=== PATIENT | male | born 1970 | race Caucasian/White ===

== ENCOUNTER 2023-08-17 09:23 | Day surgery (SDC) | payer BC ==
[~2023-08-17 09:23] MED LIST: Lactated Ringers 1,000 ML IV SCH; Propofol 200 MG/20 ML SDV ONE
== END 2023-08-17 13:20 | disposition home or self-care (01) ==
LOC: MW.SDS 09:23
PROVIDERS: ATTEND Surgery
DX: D12.3 Benign neoplasm of transverse colon (principal); D12.6 Benign neoplasm of colon, unspecified; K64.4 Residual hemorrhoidal skin tags; J44.9 Chronic obstructive pulmonary disease, unspecified; K21.9 Gastro-esophageal reflux disease without esophagitis; G47.33 Obstructive sleep apnea (adult) (pediatric); E66.01 Morbid (severe) obesity due to excess calories; F17.210 Nicotine dependence, cigarettes, uncomplicated; Z79.899 Other long term (current) drug therapy; Z68.41 Body mass index [BMI] 40.0-44.9, adult
CPT/HCPCS: 45380; 45381; 45385; J7120; 00811; J2704

== ENCOUNTER 2025-02-05 20:45 | Emergency (ER) | payer BC ==
[2025-02-05 21:28] LABS: BASOPHILS ABSOLUTE AUTO 0.07 K/uL (0.00-0.20); BASOPHILS PERCENT AUTO 0.5 % (0.0-1.0); EOSINOPHILS ABSOLUTE AUTO 0.11 K/uL (0.00-0.45); EOSINOPHILS PERCENT AUTO 0.8 % (0.0-6.0); HEMATOCRIT 49.2 % (42.0-52.0); IMMATURE GRAN ABSOLUTE AUTO 0.04 K/uL (0.00-0.05); IMMATURE GRAN PERCENT AUTO 0.3 % (0.0-0.4); LYMPHOCYTES ABSOLUTE AUTO 3.96 K/uL (1.00-4.80); LYMPHOCYTES PERCENT AUTO 30.4 % (24.0-44.0); MEAN CORPUSCULAR HGB CONC 34.6 g/dL (32.0-36.0); MEAN CORPUSCULAR VOLUME 89.8 fL (83.0-99.0); MEAN PLATELET VOLUME 10.1 fL (9.4-12.4); MONOCYTES ABSOLUTE AUTO 1.04 K/uL (0.00-0.80); NEUTROPHILS ABSOLUTE AUTO 7.79 K/uL (1.80-7.70); PLATELET COUNT,PLT 216 K/uL (150-400); RED BLOOD CELL COUNT 5.48 M/uL (4.52-5.90); WHITE BLOOD CELL COUNT,WBC 13.01 K/uL (3.9-11.3)
[2025-02-05 21:52] LABS: A/G RATIO 0.9 (0.9-1.6); ALANINE AMINOTRANSFERASE,ALT 24 IU/L (14-63); ALBUMIN 3.5 g/dL (3.4-5.0); ALKALINE PHOSPHATASE 118 U/L (46-116); ASPARTATE AMNIOTRANSFERASE,AST 16 IU/L (15-37); BILIRUBIN TOTAL 0.6 mg/dL (0.2-1.0); BLOOD UREA NITROGEN,BUN 10 mg/dL (7.0-18.0); CALCIUM 8.8 mg/dL (8.5-10.1); CARBON DIOXIDE,CO2 30.2 mmol/L (21.0-32.0); CHLORIDE,CL 103 mmol/L (98-107); CREATININE 1.2 mg/dL (0.8-1.3); GLUCOSE RANDOM 97 mg/dL (74-106); LIPASE 25 U/L (16-77); MAGNESIUM 2.2 mg/dL (1.8-2.4); POTASSIUM,K 4.3 mmol/L (3.5-5.1); PROTEIN TOTAL,TP 7.4 g/dL (6.4-8.2); SODIUM,NA 137 mmol/L (136-148)
[2025-02-05 22:00] LABS: ESTIMATED GFR 72 mL/min (>60)
[2025-02-05 22:31] LABS: APPEARANCE,URINE CLEAR; BILIRUBIN,URINE NEGATIVE (NEGATIVE); COLOR,URINE YELLOW; GLUCOSE,URINE NEGATIVE (NEGATIVE); KETONES,URINE NEGATIVE (NEGATIVE); LEUKOCYTE ESTERASE,URINE NEGATIVE (NEGATIVE); NITRITE,URINE NEGATIVE (NEGATIVE); OCCULT BLOOD,URINE NEGATIVE (NEGATIVE); PH,URINE 5.5 (5.0-8.0); PROTEIN,URINE NEGATIVE (NEGATIVE); UROBILINOGEN,URINE 0.2 EU/dL (<2.0)
[2025-02-05] MEDS: Iopamidol 755 MG/ML 500 ML Multipack Bottle IVPUSH ONE (23:42)
[2025-02-06] MEDS: Ketorolac 30 MG/ML SDV IVPUSH ONE (00:47)
== END 2025-02-06 00:51 | disposition home or self-care (01) ==
LOC: MW.ED 20:45
DX: R10.9 Unspecified abdominal pain (principal); J44.9 Chronic obstructive pulmonary disease, unspecified; K21.9 Gastro-esophageal reflux disease without esophagitis; E66.9 Obesity, unspecified; Z68.41 Body mass index [BMI] 40.0-44.9, adult; Z91.018 Allergy to other foods; Z79.51 Long term (current) use of inhaled steroids; Z79.899 Other long term (current) drug therapy; Z75.3 Unavailability and inaccessibility of health-care facilities
CPT/HCPCS: 36415; 74177; 74177-26; 80053; 81003; 83690; 83735; 85025; 87086; 96374; 99283; 99284-25; J1885; Q9967